=== PATIENT | female | born 1965 | race Caucasian/White ===

== ENCOUNTER 2017-07-24 15:03 | Outpatient (CLI) | payer BC ==
[2017-07-24 15:51] LABS: URIC ACID 4.2 mg/dL (2.6-7.2)
--- NOTE | 2017-07-25 09:05 | XRAY Report ---
THREE-VIEW RIGHT HAND: 07/24/2017 CLINICAL INDICATION: Arthralgia. FINDINGS: AP, lateral, oblique views of the right hand demonstrate no evidence of fracture or disloc ation. The joint spaces are preserved. No radiopaque foreign body is seen in the soft tissues. IMPRESSION: NORMAL RIGHT HAND. JOB #: [id number] JOB #:[id number]
[2017-07-26 11:10] LABS: TEST RESULT REPORT
[2017-07-26 12:52] LABS: TEST RESULT REPORT
[2017-07-26 13:26] LABS: ANA SCREEN NEGATIVE (NEGATIVE)
== END 2017-07-24 15:04 | disposition home or self-care (01) ==
LOC: LAB 15:03
PROVIDERS: ATTEND Internal Medicine
DX: M25.50 Pain in unspecified joint (principal); M25.60 Stiffness of unspecified joint, not elsewhere classified
CPT/HCPCS: 36415; 81599; 84550; 85303; 85651; 86038; 86140; 86200; 86235; 86430